=== PATIENT | male | born 1990 ===

== ENCOUNTER 2017-11-19 09:51 | Emergency (ER) | payer OTHER ==
[~2017-11-19] VITALS: Ht 182.9 cm; Wt 179.2 kg
[2017-11-19] MEDS ORDERED: BUDEO.25 (10:01)
[2017-11-19] MEDS ORDERED: CLEOCIN HCL150 MG (10:01)
[2017-11-19] MEDS ORDERED: TUSICOF LIQUID120 ML (10:02)
[2017-11-19] MEDS ORDERED: PROVENTIL HFA6.7 GM (10:02)
== END 2017-11-19 14:43 | disposition home or self-care (01) ==
LOC: ER 09:51
DX: J06.9 Acute upper respiratory infection, unspecified (principal)

== ENCOUNTER 2018-08-13 09:20 | Emergency (ER) | payer OTHER ==
[~2018-08-13] VITALS: Ht 182.9 cm; Wt 183.7 kg
[~2018-08-13 09:20] MED LIST: BUDEO.25; CLEOCIN HCL150 MG; PROVENTIL HFA6.7 GM; TUSICOF LIQUID120 ML
== END 2018-08-13 12:45 | disposition home or self-care (01) ==
LOC: ER 09:20
DX: J45.998 Other asthma (principal); B34.9 Viral infection, unspecified

== ENCOUNTER 2018-08-18 10:21 | Emergency (ER) | payer OTHER ==
[~2018-08-18] VITALS: Ht 182.9 cm; Wt 183.7 kg
== END 2018-08-18 13:06 | disposition home or self-care (01) ==
LOC: ER 10:21
DX: J45.998 Other asthma (principal)

== ENCOUNTER 2019-06-23 12:37 | Emergency (ER) | payer OTHER ==
[~2019-06-23] VITALS: Ht 182.9 cm; Wt 188.2 kg
[2019-06-23] MEDS ORDERED: ALBUTEROL2.5 MG/3 M IH (12:45)
== END 2019-06-23 13:00 | disposition home or self-care (01) ==
LOC: ER 12:37
DX: J06.9 Acute upper respiratory infection, unspecified (principal)